=== PATIENT | male | born 1990 | race Caucasian/White ===

== ENCOUNTER 2020-10-30 12:03 | Emergency (ER) | payer BC, SELFPAY ==
[2020-10-30 12:09] VITALS: BP 115/80; PULSE 74; RESP 16; TEMP 36.5; O2SAT 100
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
== END 2020-10-30 12:30 | disposition home or self-care (01) ==
PROVIDERS: Emergency Provider Nurse Practitioner
DX: Z03.89 Encounter for observation for other suspected diseases and conditions ruled out (principal)
CPT/HCPCS: 99211; G0463